=== PATIENT | female | born 1970 | race Caucasian/White ===

== ENCOUNTER 2019-07-18 13:45 | Emergency (ER) | payer SELFPAY ==
[~2019-07-18] VITALS: Ht 167.6 cm; Wt 63.5 kg
--- NOTE | 2019-07-18 13:45 | NUR ---
Patient BIBA BLS, transferred to bed 7. RN evaluating patient at bedside.
[2019-07-18 13:49] VITALS: BP 133/77
--- NOTE | 2019-07-18 13:57 | NUR ---
BIBA S/P FALL AT [facility]. PT STATES SHE SLIPPED ON WATER HIT HER KNEE. C/O RT SIDED NECK PAIN. DENIES LOC. PT DID NOT HIT HEAD. PT ABLE TO AMBULATE. DENIES HEADACHE. 6/10 ACHING PAIN. RR EVEN AND UNLABORED. PT PLACED IN GOWN. LAYING IN BED CALM AT THIS TIME. VSS HX: HDL ALLERGIES: DENIES
[2019-07-18] MEDS ORDERED: KETOROLAC 30 MG/ML VIAL IM ONE (14:10)
--- NOTE | 2019-07-18 15:06 | NUR ---
Patient discharged with v/s stable. Written and verbal after care instructions given and explained. Patient alert, oriented and verbalized understanding of instructions. Ambulatory with to home. All questions addressed prior to discharge. ID band removed. Patient advised to follow up with PMD. Rx of IBURPROFEN, ACETAMINOPHEN given. Patient educated on indication of medication including possible reaction and side effects. Opportunity to ask questions provided and answered.
== END 2019-07-18 15:06 | disposition home or self-care (01) ==
LOC: MED 13:45
DX: S46.811A Strain of other muscles, fascia and tendons at shoulder and upper arm level, right arm, initial encounter (principal); S80.01XA Contusion of right knee, initial encounter; W01.0XXA Fall on same level from slipping, tripping and stumbling without subsequent striking against object, initial encounter; Y93.89 Activity, other specified; Y92.89 Other specified places as the place of occurrence of the external cause; Y99.8 Other external cause status
CPT/HCPCS: 73562; 96372; 99283; J1885; Q0092

== ENCOUNTER 2020-11-07 03:15 | Emergency (ER) | payer OTHER ==
[~2020-11-07] VITALS: Ht 152.4 cm; Wt 68.0 kg
--- NOTE | 2020-11-07 03:15 | NUR ---
PT SAMAN GALICIAS. TAKEN TO TENT
[2020-11-07 03:22] VITALS: BP 134/84
[2020-11-07] MEDS ORDERED: cefTRIAXone 1,000 MG in LIDOCAINE MPF 1% 2.1 ML IM ONE (03:30)
[2020-11-07] MEDS ORDERED: ALBUTEROL HFA MDI 90 MCG/ACTUATION 8 GM INH ONE (03:30)
[2020-11-07] MEDS ORDERED: AZITHROMYCIN 250 MG TAB PO ONE (03:30)
[2020-11-07] MEDS ORDERED: DEXAMETHASONE 4 MG/ML VIAL IM ONE (03:30)
--- NOTE | 2020-11-07 03:30 | NUR ---
SEE COMPLETE ASSESSMENT FOR FURTHER DETAILS.
--- NOTE | 2020-11-07 03:36 | NUR ---
Kylie thompson in [facility] - 11/07/20 at 0338 by [email or web address] PATIENT TAKEN TO RAD VIA W/C.
--- NOTE | 2020-11-07 03:38 | NUR ---
PATIENT REFUSED TO GO TO XRAY D/T NAUSEA.
[2020-11-07] MEDS ORDERED: LIDOCAINE MPF 1% 5 ML ONE (03:50)
[2020-11-07] MEDS ORDERED: cefTRIAXone 1,000 MG VIAL ONE (03:50)
--- NOTE | 2020-11-07 03:58 | NUR ---
SHASHANKD ASSED PATIENT IN TENT.
[2020-11-07] MEDS ORDERED: ONDANSETRON 4 MG ODT ONE (04:05)
[2020-11-07] MEDS ORDERED: ONDANSETRON 4 MG ODT PO ONE (04:05)
[2020-11-07] MEDS ORDERED: IBUPROFEN 800 MG TAB PO ONE ×2 (05:25)
[2020-11-07 06:45] VITALS: BP 125/87
--- NOTE | 2020-11-07 06:45 | NUR ---
Patient discharged with v/s stable. Written and verbal after care instructions given and explained. Patient alert, oriented and verbalized understanding of instructions. Ambulatory with steady gait. All questions addressed prior to discharge. ID band removed. Patient advised to follow up with PMD. Rx of ZOFRAN, VENTOLIN given. Patient educated on indication of medication including possible reaction and side effects. Opportunity to ask questions provided and answered.
== END 2020-11-07 06:45 | disposition home or self-care (01) ==
LOC: MED 03:15
DX: J06.9 Acute upper respiratory infection, unspecified (principal); Z20.828 Contact with and (suspected) exposure to other viral communicable diseases; R11.2 Nausea with vomiting, unspecified
CPT/HCPCS: 71045; 87426; 87804; 99284; J0696; J1100; J2001; Q0162; J3535

== ENCOUNTER 2021-09-29 17:47 | Emergency (ER) | payer OTHER ==
[~2021-09-29] VITALS: Ht 167.6 cm; Wt 70.3 kg
[2021-09-29 17:49] VITALS: BP 140/78
--- NOTE | 2021-09-29 17:51 | NUR ---
PT W/C ASSISTED TO LOBBY
--- NOTE | 2021-09-29 18:00 | NUR ---
50 Y/O FEMALE BIBA C/O ETOH AT WORK. PER EMS PT HAD 3 BEERS. REPORTS NAUSEA DENIES ANY PAIN. ABD SOFT NON TENDER. VSS. MEDHX: DENIES NKA
[2021-09-29] MEDS ORDERED: ALUMINUM HYD/MAG/SIMETHICONE 30 ML UDC PO ONE (18:30)
[2021-09-29] MEDS ORDERED: ONDANSETRON 4 MG ODT PO ONE (18:30)
[2021-09-29] MEDS ORDERED: ONDA-188 SL (18:35)
--- NOTE | 2021-09-29 19:09 | NUR ---
ATTEMPTED TO CALL BOTH NUMBERS ON FILE TO PICK HER UP BUT BOTH ARE WRONG NUMBERS. PT TO WAIT IN LOBBY UNTIL SOMEONE CAN PICK HER UP.
[2021-09-29 20:26] VITALS: BP 140/78
--- NOTE | 2021-09-29 20:29 | NUR ---
Patient discharged with v/s stable ACCOMPANIED BY FAMILY Written and verbal after care instructions given and explained. Patient alert, oriented and verbalized understanding of instructions. Ambulatory with steady gait. All questions addressed prior to discharge. ID band removed. Patient advised to follow up with PMD. Rx of ZOFRAN given. Patient educated on indication of medication including possible reaction and side effects. Opportunity to ask questions provided and answered.
== END 2021-09-29 20:29 | disposition home or self-care (01) ==
LOC: MED 17:47
DX: F10.129 Alcohol abuse with intoxication, unspecified (principal); R11.2 Nausea with vomiting, unspecified; R10.9 Unspecified abdominal pain; Z79.899 Other long term (current) drug therapy
CPT/HCPCS: 99283; Q0162

== ENCOUNTER 2022-06-19 09:37 | Day surgery (SDC) | payer OTHER ==
[~2022-06-19] VITALS: Ht 165.1 cm; Wt 75.7 kg
[~2022-06-19 09:37] MED LIST: ONDA-188 SL
[2022-06-19] MEDS ORDERED: LIDOCAINE 2% 100 MG/5 ML UJET TP ONE (11:37)
[2022-06-19] MEDS ORDERED: fentaNYL citrate 0.05 MG/ML VIAL ONE (11:37)
[2022-06-19] MEDS ORDERED: fentaNYL citrate 0.05 MG/ML VIAL IVP ONE (12:15)
== END 2022-06-19 12:38 | disposition home or self-care (01) ==
LOC: MOR 09:37 → MMU 09:37 → MOR 12:38
PROVIDERS: ATTEND Internal Medicine Gastroenterology
DX: Z12.11 Encounter for screening for malignant neoplasm of colon (principal); K57.30 Diverticulosis of large intestine without perforation or abscess without bleeding; E78.00 Pure hypercholesterolemia, unspecified; Z79.899 Other long term (current) drug therapy; Z20.822 Contact with and (suspected) exposure to COVID-19
CPT/HCPCS: 45378; 81025; 87426; J3010

== ENCOUNTER 2022-09-02 21:41 | Emergency (ER) | payer OTHER ==
[~2022-09-02] VITALS: Ht 162.6 cm; Wt 71.7 kg
[2022-09-02 22:02] VITALS: BP 123/74
--- NOTE | 2022-09-02 22:56 | NUR ---
PATIENT AMBULATED TO BED 3
[2022-09-02] MEDS ORDERED: methocarbamoL 500 MG TAB PO STA (22:58)
[2022-09-02] MEDS ORDERED: LIDOCAINE 5% 1 EA PATCH TP ONE (23:00)
[2022-09-02] MEDS ORDERED: KETOROLAC 15 MG/ML VIAL IM ONE (23:00)
[2022-09-02] MEDS ORDERED: LID5T TP (23:50)
[2022-09-02] MEDS ORDERED: METH-1681 PO (23:50)
== END 2022-09-03 00:07 | disposition home or self-care (01) ==
LOC: MED 21:41
DX: S52.611A Displaced fracture of right ulna styloid process, initial encounter for closed fracture (principal); V49.88XA Car occupant (driver) (passenger) injured in other specified transport accidents, initial encounter; Y93.89 Activity, other specified; Y92.89 Other specified places as the place of occurrence of the external cause; Y99.8 Other external cause status
CPT/HCPCS: 29125; 73110; 96372; 99283; J1885; Q0092